=== PATIENT | female | born 1960 | race Caucasian/White ===

== ENCOUNTER 2017-01-21 08:33 | Outpatient (CLI) | payer OTHER ==
[~2017-01-21 08:33] MED LIST: ACETAMINOPHEN500 MG PO; BIOTIN5000 MCG PO; BOTOX100 UNIT; COQ-10200 MG PO; HYDROXYZINE HCL25 MG PO; HYDROXYZINE HCL50 MG PO; IMITREX100 MG PO; KETOROLAC IM; LORTAB 10-300 M1 ELX PO; METHOCARBAMOL500 MG PO; PERCOCET1 TA1 PO; PHENERGAN EQUIV25 MG PO; PRILOSEC20 MG PO; PRILOSEC40 MG PO; PROBIOTI1 PO; PROBIOTIC PO; TOPAMAX25 MG PO; VITAMIN C500 M1 PO; VITAMIN D-32000 UNIT PO; ZANTAC 150 MAX150 MG PO; [UNRECOGNIZED DRUG - OTHER]; [UNRECOGNIZED DRUG - OTHER] IM
--- NOTE | 2017-01-21 19:25 | DIAGNOSTIC IMAGING REPORT ---
PROCEDURE: MG BILATERAL SCREENING W/CAD INDICATION: Screening TECHNIQUE: Standard CC and MLO views bilaterally. Computer aided detection was used. COMPARISON: 01/30/2015, 08/28/2012, 10/16/2009 FINDINGS: Dense fibroglandular tissue with a widely scattered punctate calcifications is present bilaterally. No developing densities, areas of architectural distortion, or suspicious microcalcifications. IMPRESSION: 1. Stable mammograms without radiographic evidence of malignancy. RESULT CODE: 1- Negative. A. A negative report should not delay biopsy if a dominant or clinically suspicious mass is present. 10-15% of cancers are not identified by x-ray. B. A negative report may reinforce clinical impression. C. Adenosis and dense breasts may obscure an underlying neoplasm. D. False positive reports average 6-10%. E.. A yearly screening mammogram is recommended. A reminder letter will be scheduled.
== END 2017-01-21 23:00 | disposition home or self-care (01) ==
LOC: MAM SRH 08:33
DX: Z12.31 Encounter for screening mammogram for malignant neoplasm of breast (principal)